=== PATIENT | male | born 1960 | race Caucasian/White ===

== ENCOUNTER 2018-05-30 03:36 | Inpatient (IN) | payer OTHER ==
[~2018-05-30] VITALS: Ht 167.6 cm; Wt 118.0 kg
[2018-05-30] MEDS ORDERED: ONDANSETRON HCL 4MG/2ML INJ IV STA (04:13)
[2018-05-30] MEDS ORDERED: SODIUM CHLORIDE 0.9% 1,000 ML IV ONE (04:13)
[2018-05-30] MEDS ORDERED: MORPHINE SULFATE 4 MG/ML CPJ (NOT FOR IM USE) IV STA (04:13)
[2018-05-30] MEDS ORDERED: LORAZEPAM 2MG/ML CPJ IV ONE (04:15)
[2018-05-30] MEDS ORDERED: LEVETIRACETAM 500MG PREMIX 100 ML IV ONE (04:30)
[2018-05-30 04:32] LABS: BASOPHILS % 0.3 % (0.0-2.0); EOSINOPHILS % 0.6 % (0.0-5.0); HEMATOCRIT. 46.4 % (42.0-52.0); HEMOGLOBIN. 15.9 g/dL (14.0-18.0); LYMPHOCYTES % 24.9 % (20.0-50.0); MEAN CORPUSCULAR HEMOGLOBIN 29.9 pg (28.0-32.0); MEAN CORPUSCULAR VOLUME 87.4 fL (80.0-94.0); MEAN PLATELET VOLUME 8.2 fl (7.4-10.4); MONOCYTES % 5.4 % (2.0-8.0); NEUTROPHILS % 68.8 % (40.0-76.0); PLATELET 227 x1000/uL (130-400); RED BLOOD CELL COUNT 5.31 mill/uL (4.7-6.1); RED CELL DISTRIBUTION WIDTH 13.3 % (11.6-14.6)
[2018-05-30 04:39] LABS: CHLORIDE 103 mEq/L (98-107)
[2018-05-30 04:43] LABS: ETHANOL BLOOD < 10 mg/dL
[2018-05-30 04:48] LABS: CREATINE KINASE 185 IU/L (39-308)
[2018-05-30] MEDS ORDERED: SODIUM CHLORIDE 0.9% 1,000 ML IV SCH (04:52)
[2018-05-30] MEDS ORDERED: MORPHINE SULFATE 2 MG/ML CPJ (NOT FOR IM USE) IV STA (05:32)
[2018-05-30] MEDS ORDERED: MORPHINE SULFATE 2 MG/ML CPJ (NOT FOR IM USE) IV SCH (05:45)
[2018-05-30] MEDS ORDERED: LEVETIRACETAM 500 MG in SODIUM CHLORIDE 0.9% 100 ML IV SCH (06:00)
[2018-05-30 07:06] LABS: CLARITY URINE CLEAR (CLEAR); COLOR URINE YELLOW (YELLOW); KETONES URINE TRACE (NEGATIVE); LEUKOCYTE ESTERASE URINE NEGATIVE (NEGATIVE); NITRITE URINE NEGATIVE (NEGATIVE); OCCULT BLOOD URINE NEGATIVE (NEGATIVE); PROTEIN URINE 1+ (NEGATIVE); SPECIFIC GRAVITY URINE 1.023 (1.005-1.030); UROBILINOGEN URINE 0.2 E.U./dL (0.2-1.0)
[2018-05-30 07:29] LABS: *AMPHETAMINES SCREEN URINE NEGATIVE (NEGATIVE); *BARBITURATES SCREEN URINE NEGATIVE (NEGATIVE); *BENZODIAZEPINES SCREEN URINE NEGATIVE (NEGATIVE); *COCAINE SCREEN URINE NEGATIVE (NEGATIVE)
[2018-05-30 07:30] LABS: CANNABINOID URINE SCREEN NEGATIVE (NEGATIVE); METHADONE URINE SCREEN NEGATIVE (NEGATIVE); OPIATES URINE SCREEN NEGATIVE (NEGATIVE); PHENCYCLIDINE URINE SCREEN NEGATIVE (NEGATIVE)
[2018-05-30] MEDS ORDERED: MAGNESIUM/ALUMINUM HYDROXIDE/SIMETHICONE 30ML UDC PO PRN (11:15)
[2018-05-30] MEDS ORDERED: ACETAMINOPHEN 325MG TABLET PO PRN (11:15)
[2018-05-30] MEDS ORDERED: CLONIDINE 0.1MG TABLET PO PRN (11:15)
[2018-05-30] MEDS ORDERED: LORAZEPAM 2MG/ML CPJ IV PRN (11:15)
[2018-05-30] MEDS ORDERED: ONDANSETRON HCL 4MG/2ML INJ IV PRN (11:15)
[2018-05-30] MEDS ORDERED: HYDROCODONE/ACETAMINOPHEN 5/325MG TABLET PO PRN (11:30)
[2018-05-30] MEDS ORDERED: LEVETIRACETAM 500MG PREMIX 100 ML IV NR (18:45)
[2018-05-31] MEDS ORDERED: DEXTROSE 50% WATER 50ML SYRINGE IV PRN (01:16)
[2018-05-31 01:45] VITALS: BP 166/91
[2018-05-31] MEDS ORDERED: METF500S7 PO (03:32)
[2018-05-31 04:00] VITALS: BP 151/86
[2018-05-31] MEDS ORDERED: SODIUM CHLORIDE 0.9% INJ 3ML FLUSH IVF SCH (06:00)
[2018-05-31] MEDS ORDERED: BLOOD SUGAR DIAGNOSTIC STRIP TEST SCH (07:40)
[2018-05-31 08:00] VITALS: BP 106/79
[2018-05-31] MEDS ORDERED: INSULIN LISPRO 100 UNITS/ML SUBCUT SCH (08:10)
[2018-05-31] MEDS ORDERED: METFORMIN HCL 500MG TABLET PO SCH (08:10)
[2018-05-31] MEDS ORDERED: AMLODIPINE 5MG TABLET PO SCH (09:00)
[2018-05-31 12:00] VITALS: BP 121/76
[2018-05-31 14:41] VITALS: BP 121/76
== END 2018-05-31 17:09 | disposition home or self-care (01) | DRG 101 ==
LOC: ER 03:36 → 7WST 04:53 → ENRESERV 05-31 00:40
PROVIDERS: ADMIT Internal Medicine; ATTEND Internal Medicine
DX: G40.89 Other seizures (principal); Z68.41 Body mass index [BMI] 40.0-44.9, adult; E11.9 Type 2 diabetes mellitus without complications; E66.01 Morbid (severe) obesity due to excess calories; E78.00 Pure hypercholesterolemia, unspecified; I10 Essential (primary) hypertension; Z83.3 Family history of diabetes mellitus
CPT/HCPCS: 36415; 70551; 71045; 80305; 82550; 82962; 83036; 83605; 84484; 93005; 96365; 96366; 96375; 99291; G0482; J1953; J2270; J2405; J7030; J7050